=== PATIENT | male | born 1955 | race Caucasian/White ===

== ENCOUNTER → 2016-09-04 | Day surgery (SDC) | payer BC ==
[~2016-09-04] MED LIST: BACTOIN; BUPIVACAINE/EPINEPHRINE 0.25% 50 ML VIAL ONE; KETOROLAC TROMETHAMINE 30 MG/ML (IVP) VIAL IV PUSH ONE; LACTATED RINGER'S 1000 ML INJ 1,000 ML ONE; MIDAZOLAM HCL 2 MG/2 ML VIAL ONE; NEOMYCIN/POLYMYXIN/BACITRACIN OINT 15 GM TUBE ONE; ONDANSETRON HCL 4 MG/2 ML VIAL IV PUSH ONE; PROPOFOL 200 MG/20 ML AMP IV ONE; ceFAZolin 2 GM PREMIX 50 ML ONE
--- NOTE | 2016-09-04 15:35 | TN ---
cc: MAHESH CAMERON M.D. DATE OF SURGERY: 09/04/2016 PREOPERATIVE DIAGNOSIS 1. Symptomatic left inguinal hernia. 2. Small umbilical hernia. POSTOPERATIVE DIAGNOSIS 1. Indirect left inguinal hernia. 2. Small umbilical hernia. PROCEDURE PERFORMED 1. Laparoscopic left inguinal hernia repair with mesh. 2. Primary repair of umbilical hernia. SURGEON Mahesh Cameron TIME CLOCK MECHANIC RICARDO Youngblood ANESTHESIA General LMA. COMPLICATIONS None. INDICATION FOR PROCEDURE Mr. Schwartz is a pleasant 60-year-old gentleman who had a symptomatic left groin bulge. His history is significant for having had a right inguinal hernia as an . He was seen and evaluated. He was found to have a moderate left inguinal hernia and a small umbilical hernia. The risks and benefits of repair of his hernias was discussed with him and he was agreeable to proceed. Laparoscopic and open techniques were reviewed and the patient elected laparoscopic. DETAILS OF PROCEDURE The patient was identified, brought to the operating room and placed supine on the operating table. After adequate general anesthesia was achieved with LMA, the anterior abdomen and groin was prepped and draped in standard surgical fashion. The infraumbilical space was anesthetized with 0.25% Marcaine. An infraumbilical incision was made. Dissection was carried down to subcutaneous tissue to the anterior rectus fascia. The anterior rectus fascia was then incised vertically off the midline. The rectus muscle was retracted laterally and the preperitoneal space was entered with blunt finger dissection. A blunt dissecting balloon was inserted and the preperitoneal space insufflated with 30 pumps of air under direct vision. Next, the dissecting balloon was removed and balloon trocar inserted. The preperitoneal space was insufflated to 11 mmHg using CO2 gas. Next, two 5 mm trocars were placed in the lower midline under direct vision. Attention was directed to the midline where pubic tubercle and Ayan's ligament were identified. Dissection proceeded out laterally identifying the cord structures exiting the internal ring. Traveling with the cord structures was a fairly large peritoneal sac. The peritoneal sac was carefully dissected out of the inguinal canal using a [id number] technique. It was then stripped off of the cord structures back to the level of the preperitoneal space. There was no evidence of a direct inguinal hernia. Once the peritoneum had been stripped off the cord structures, a posterior window was made behind the cord structures. A piece of polypropylene mesh was inserted with a slit cut for the cord structures. The mesh was placed through the posterior window and then the slit re-approximated, tightening the internal ring with the ProTack device. The mesh was then secured medially at Ayan's ligament, superiorly along the posterior abdominal wall fascia. An onlay mesh was then placed over the slit and it was secured medially and laterally. With this the indirect and direct spaces were well-covered by mesh with generous overlap. 0.25% Marcaine was injected in the operative field. The inferior border of the mesh was then held down and the preperitoneal space was desufflated and the peritoneum was seen to roll up over the mesh, again with excellent coverage of the indirect and direct spaces. All trocars were removed under direct vision. The anterior rectus fascia was repaired with 0 Vicryl in a [id number] fashion. Attention was now directed to the umbilical hernia. The umbilical stalk was dissected circumferentially. The umbilical stalk was then transected and a small fascial defect was noted. The defect measured about a centimeter in diameter. It was therefore closed primarily using a 2-0 Prolene suture interrupted x2. With this the defect was completely closed. The umbilical stalk was then sutured down to the abdominal wall using a 3-0 Vicryl suture. Subcutaneous tissue was closed with 3-0 Vicryl and skin was closed with 4-0 Vicryl. The patient tolerated the procedure well, was awakened and brought to Recovery in stable condition. Please note the CAR REPOSSESSOR evaluation assistant was medically necessary due to her specialized surgical skills and knowledge of my surgical technique. MD JOEY Angulo/HUSAM /3:19 PM /3:25 PM KAYLEIGH
== END | disposition home or self-care (01) ==
LOC: ESDC 12:07
PROVIDERS: ATTEND Surgery Trauma Surgery
DX: K40.90 Unilateral inguinal hernia, without obstruction or gangrene, not specified as recurrent (principal); K42.9 Umbilical hernia without obstruction or gangrene
CPT/HCPCS: 00750; 00840; 49585; 49650; C1727; C1781; J0690; J1885; J2250; J2405; J3010; J7120

== ENCOUNTER 2017-11-14 12:44 | Emergency (ER) | payer BC ==
[~2017-11-14] VITALS: Ht 177.8 cm; Wt 85.0 kg
[~2017-11-14 12:44] MED LIST changes: -BUPIVACAINE/EPINEPHRINE 0.25% 50 ML VIAL ONE; -KETOROLAC TROMETHAMINE 30 MG/ML (IVP) VIAL IV PUSH ONE; -LACTATED RINGER'S 1000 ML INJ 1,000 ML ONE; -MIDAZOLAM HCL 2 MG/2 ML VIAL ONE; -NEOMYCIN/POLYMYXIN/BACITRACIN OINT 15 GM TUBE ONE; -ONDANSETRON HCL 4 MG/2 ML VIAL IV PUSH ONE; -PROPOFOL 200 MG/20 ML AMP IV ONE; -ceFAZolin 2 GM PREMIX 50 ML ONE
[2017-11-14 12:50] VITALS: BP 157/69; PULSE 93; RESP 20; TEMP 97.8; O2SAT 100
[2017-11-14] MEDS ORDERED: SODIUM CHLOR 0.9% 1000 ML INJ 1,000 ML IV SCH (13:24)
--- NOTE | 2017-11-14 13:29 | PD ---
HPI Chief Complaint: GI Complaint Time Seen by Provider: 13:18 Travel History International Travel<30 days: No Contact w/Intl Traveler<30days: No Traveled to known affect area: No History of Present Illness HPI Patient comes to the emergency department complaining of sharp stabbing abdominal pain that he woke with this morning. Describes them as feeling like a toothache. Patient reports he had surgery 5 days ago for right inguinal hernia was on pain medicine for 2 days and was fine the past couple of days until he woke this morning. Patient reports he had a normal bowel movement yesterday but has had a small loose stool today that was nonbloody. Patient reports he has been having nausea and belching. Reports the belching seems to help. Denies any vomiting. Pain radiates superiorly into his chest and is worse to palpation. PFSH Past Medical History Inguinal Hernia: Yes Social History Alcohol Use: No Tobacco Use: Yes Allergies-Medications (Allergen,Severity, Reaction): Coded Allergies: No Known Allergies (Verified Allergy, Mild, 01/20/16) Reported Meds & Prescriptions Reported Meds & Active Scripts Active Zofran Odt (Ondansetron Odt) 4 Mg Tab 4 Mg SL Q6HR PRN Bactroban Nasal Ointment (Mupirocin Nasal Ointment) Oin 1 Applic NA Q12HR 7 Days Review of Systems Except as stated in HPI: all other systems reviewed are Neg Physical Exam Narrative GENERAL: Well-developed, well nourished, in no acute distress, and non-ill appearing. SKIN: Focused skin assessment warm and dry. HEAD: Atraumatic. Normocephalic. EYES: Pupils equal and round. EOMI. No scleral icterus. No injection or drainage. ENT: No nasal bleeding or discharge. Mucous membranes pink and moist. NECK: Trachea midline. Supple. No nuclear rigidity. CARDIOVASCULAR: Regular rate and rhythm. No murmur appreciated. RESPIRATORY: No accessory muscle use. No respiratory distress. Clear to auscultation. Breath sounds equal bilaterally. GASTROINTESTINAL: Abdomen soft, nondistended, and no guarding. Hepatic and splenic margins not palpable. Normal bowel sounds x4. No pulsatile mass. Patient reports tenderness around the umbilicus. MUSCULOSKELETAL: No obvious deformities. No clubbing. No cyanosis. No edema. Full range of motion. NEUROLOGICAL: Awake and alert. No obvious cranial nerve deficits. Motor grossly within normal limits. Normal speech. PSYCHIATRIC: Appropriate mood and affect; insight and judgment normal. Data Data Last Documented VS Vital Signs Date Time Temp Pulse Resp B/P (MAP) Pulse Ox O2 Delivery O2 Flow Rate FiO2 11/14/17 18:49 62 21 143/73 (96) 98 11/14/17 16:25 98.2 Room Air Orders Orders Complete Blood Count With Diff (11/14/17 13:) Comprehensive Metabolic Panel (11/14/17 13:01) Urinalysis - C+S If Indicated (11/14/17 13:01) Iv Access Insert/Monitor (11/14/17 13:01) Oxygen Administration (11/14/17 13:) Oximetry (11/14/17 13:01) Lipase (11/14/17 13:01) Lipase (11/14/17 13:24) Prothrombin Time / Inr (Pt) (11/14/17 13:24) Act Partial Throm Time (Ptt) (11/14/17 13:24) Abdomen, Flat & Upright (11/14/17 ) Ecg Monitoring (11/14/17 13:24) Sodium Chlor 0.9% 1000 Ml Inj (Ns 1000 M (11/14/17 13:24) Sodium Chloride 0.9% Flush (Ns Flush) (11/14/17 13:30) Electrocardiogram (11/14/17 13:24) Chest, Single Ap (11/14/17 13:24) Ondansetron Odt (Zofran Odt) (11/14/17 13:30) Morphine Inj (Morphine Inj) (11/14/17 13:30) Promethazine Inj (Phenergan Inj) (11/14/17 13:45) Morphine Inj (Morphine Inj) (11/14/17 13:45) Influenzae A/B Antigen (11/14/17 14:12) Metoclopramide Inj (Reglan Inj) (11/14/17 14:30) Ct Abd/Pel W Iv Contrast(Rout) (11/14/17 15:28) Oral Contrast - Adult (11/14/17 15:31) Diatrizoate Liq ( Gastroview Liq) (11/14/17 15:49) Iohexol 350 Inj (Omnipaque 350 Inj) (11/14/17 17:41) Ed Discharge Order (11/14/17 18:07) Promethazine Inj (Phenergan Inj) (11/14/17 18:15) Labs Laboratory Tests Test 11/14/17 14:26 11/14/17 14:30 White Blood Count 12.5 TH/MM3 Red Blood Count 5.63 MIL/MM3 Hemoglobin 16.0 GM/DL Hematocrit 47.0 % Mean Corpuscular Volume 83.5 FL Mean Corpuscular Hemoglobin 28.5 PG Mean Corpuscular Hemoglobin Concent 34.1 % Red Cell Distribution Width 14.2 % Platelet Count 289 TH/MM3 Mean Platelet Volume 7.7 FL Neutrophils (%) (Auto) 80.9 % Lymphocytes (%) (Auto) 13.5 % Monocytes (%) (Auto) 4.9 % Eosinophils (%) (Auto) 0.4 % Basophils (%) (Auto) 0.3 % Neutrophils # (Auto) 10.1 TH/MM3 Lymphocytes # (Auto) 1.7 TH/MM3 Monocytes # (Auto) 0.6 TH/MM3 Eosinophils # (Auto) 0.1 TH/MM3 Basophils # (Auto) 0.0 TH/MM3 CBC Comment DIFF FINAL Differential Comment Prothrombin Time 10.2 SEC Prothromb Time International Ratio 1.0 RATIO Activated Partial Thromboplast Time 23.7 SEC Blood Urea Nitrogen 12 MG/DL Creatinine 1.02 MG/DL Random Glucose 112 MG/DL Total Protein 7.3 GM/DL Albumin 4.0 GM/DL Calcium Level 9.4 MG/DL Alkaline Phosphatase 64 U/L Aspartate Amino Transf (AST/SGOT) 17 U/L Alanine Aminotransferase (ALT/SGPT) 27 U/L Total Bilirubin 0.8 MG/DL Sodium Level 139 MEQ/L Potassium Level 4.0 MEQ/L Chloride Level 104 MEQ/L Carbon Dioxide Level 24.1 MEQ/L Anion Gap 11 MEQ/L Estimat Glomerular Filtration Rate 74 ML/MIN Lipase 51 U/L Urine Color YELLOW Urine Turbidity CLEAR Urine pH 8.5 Urine Specific Jackman 1.020 Urine Protein TRACE mg/dL Urine Glucose (UA) NEG mg/dL Urine Ketones 40 mg/dL Urine Occult Blood NEG Urine Nitrite NEG Urine Bilirubin NEG Urine Urobilinogen LESS THAN 2.0 MG/DL Urine Leukocyte Esterase NEG Urine RBC 1 /hpf Urine WBC LESS THAN 1 /hpf Microscopic Urinalysis Comment CULT NOT INDICATED MDM Medical Decision Making Medical Screen Exam Complete: Yes Emergency Medical Condition: Yes Interpretation(s) EKG reviewed by Dr. Nieves shows sinus rhythm ventricular rate of 70. No STEMI. Last Impressions Abdomen/Pelvis CT 11/14/17 1528 Signed Impressions: CONCLUSION: 1. No acute abnormality to explain the patient's pain. In particular, no compl icating factors from recent umbilical hernia surgery. 2. 11 mm splenic lesion and 6 mm pancreatic lesion. Both are too small to accu rately characterize with CT secondary to volume averaging artifact. Further nelly racterization is suggested utilizing an outpatient MRI with gadolinium. Chest X-Ray 11/14/17 1324 Signed Impressions: CONCLUSION: Negative examination. Abdomen X-Ray 11/14/17 0000 Signed Impressions: CONCLUSION: Nonspecific but nonobstructive bowel gas pattern. Differential Diagnosis Abscess, ileus, SBO, metabolic syndromes, gastritis, appendicitis, postop complication, nausea Narrative Course Dr. Nieves discussed patient with Dr. Shafer, general surgeon who performed hernia repair, who saw and evaluated the patient in the emergency department. There are normal active bowel sounds without any masses, distension, or significant tenderness. There was no evidence of an acute, surgical abdomen at this time. There was no clinical evidence to support cholecystitis/ cholelithiasis, pancreatitis, perforation of gastric ulcer, colitis, diverticulitis, peritonitis, obstruction, volvulus, early appendicitis, or hernial incarceration or strangulation at this time. There was no evidence to support vascular pathology such as AAA, mesenteric ischemia. There was also no clinical evidence by history, exam or risk factors to suggest atypical presentation of cardiac disease such as ACS, AMI or atypical angina. No evidence to suggest genitourinary etiology as well. During the course of the ED visit, the patient noted improvement. Clinical picture was discussed with the patient, as well as plan of care. The patient was instructed to follow up with their physician. Abdominal pain warnings were discussed with the patient. The patient is to return if worsens, pain worsens or changes, develop fever, inability to tolerate fluids with or without vomiting, increased vomiting, blood in vomit, unable to establish follow up or as needed. The patient agrees with plan. The patient was tolerating fluids at time of discharge. Patient in no obvious distress upon re-evaluation. All pertinent laboratory/ Radiology result(s) discussed with patient/family. Discussed patient with Dr. Nieves prior discharge, who saw and evaluated the patient and is in agreement with plan of care and disposition. Any questions/concerns in reference to patient diagnosis/condition discussed and clarified prior to patient's discharge. Reinforced sheer importance of close follow up with patient's primary physician or primary care clinic. Instructed patient to return to ED immediately, if symptoms return/worsen. Patient showed understanding of above instructions. Further instructions and recommendations were detailed in discharge paperwork. Patient ambulated without difficulty out of ED at discharge. Diagnosis Primary Impression: Abdominal pain Qualified Codes: R10.9 - Unspecified abdominal pain Additional Impressions: Nausea alone Lesion of spleen Lesion of pancreas Patient Instructions: Abdominal Pain (ED), Acute Nausea and Vomiting (ED), General Instructions Additional Instructions: Follow-up with your primary care physician next week to get an outpatient MRI for incidental findings noted on CT today. Take all medication as prescribed. Return to the emergency department if symptoms get worse. Med/Other Pt SpecificInfo: Prescription(s) given Scripts Ondansetron Odt (Zofran Odt) 4 Mg Tab 4 MG SL Q6HR Y for Nausea/Vomiting, #12 TAB 0 Refills Prov: Rajinder Nieves MD 11/14/17 Disposition: 01 DISCHARGE HOME Condition: Stable Sushil Li Nov 14, 2017 13:29
[2017-11-14] MEDS ORDERED: SODIUM CHLORIDE 0.9% FLUSH 10 ML FLUSH IV FLUSH PRN (13:30)
[2017-11-14] MEDS ORDERED: MORPHINE SULFATE 2 MG/ML SYRINGE IV PUSH ONE (13:30)
[2017-11-14] MEDS ORDERED: ONDANSETRON ODT 4 MG TAB PO ONE (13:30)
[2017-11-14] MEDS ORDERED: MORPHINE SULFATE 4 MG/ML INJ IV PUSH ONE (13:45)
[2017-11-14] MEDS ORDERED: PROMETHAZINE INJ 25 MG/ML VIAL IM ONE ×2 (13:45→18:15)
[2017-11-14] MEDS ORDERED: METOCLOPRAMIDE HCL 10 MG/2 ML VIAL IV PUSH ONE (14:30)
--- NOTE | 2017-11-14 14:39 | RADRPT ---
EXAM DATE: 11/14/2017 2:12 PM EDT AGE/SEX: 62 years / Male INDICATIONS: Mid to lower chest pain since Friday. CLINICAL DATA: This is the patient's initial encounter. Patient reports that signs and symptoms have been present for 4 - 6 days and indicates a pain score of 9/10. MEDICAL/SURGICAL HISTORY: None. None. COMPARISON: No prior exams available for comparison. FINDINGS: A single AP view of the chest demonstrates the lungs to be symmetrically aerated without evidence of mass, infiltrate or effusion. The cardiomediastinal contours are unremarkable. Osseous structures a re intact. CONCLUSION: Negative examination. Electronically signed by: Bernardo Mercer MD 11/14/2017 2:22 PM EDT
--- NOTE | 2017-11-14 14:39 | RADRPT ---
EXAM DATE: 11/14/2017 2:13 PM EDT AGE/SEX: 62 years / Male INDICATIONS: Pain in middle, upper abdomen since Friday. CLINICAL DATA: This is the patient's initial encounter. Patient reports that signs and symptoms have been present for 4 - 6 days and indicates a pain score of 9/10. MEDICAL/SURGICAL HISTORY: None. . Hernia. COMPARISON: No prior exams available for comparison. FINDINGS: Supine and upright views of the abdomen were performed. The abdominal bowel gas pattern is nonspecifi c. Gas-filled loops of nondilated large and small bowel observed. No air-fluid levels are seen. No ab normal masses, calcifications, or organomegaly is seen. The visualized lower lungs are clear. No evid ence of free intraperitoneal gas. The osseous structures are unremarkable. Anchoring devices from giovani or low ventral hernia repair CONCLUSION: Nonspecific but nonobstructive bowel gas pattern. Electronically signed by: Bernardo Mercer MD 11/14/2017 2:25 PM EDT
[2017-11-14 15:20] LABS: BILIRUBIN, URINE NEG (NEG); BLOOD, URINE NEG (NEG); GLUCOSE,URINE NEG (NEG); KETONE, URINE 40 mg/dL (NEG); NITRITE,URINE NEG (NEG); PH, URINE 8.5 (5.0-8.5); URINE COLOR YELLOW (YELLW/STRAW); URINE LEUKOCYTE ESTERASE NEG (NEG)
[2017-11-14 15:34] LABS: AUTOMATED NEUTROPHIL # 10.1 TH/MM3 (1.8-7.7); BASOPHIL % 0.3 % (0.0-2.0); EOSINOPHIL # 0.1 TH/MM3 (0-0.4); EOSINOPHIL % 0.4 % (0.0-4.0); LYMPH % 13.5 % (9.0-44.0); LYMPHOCYTE # 1.7 TH/MM3 (1.0-4.8); MEAN CELL VOLUME 83.5 FL (80.0-100.0); MEAN CORPUSCULAR HEMOGLOBIN 28.5 PG (27.0-34.0); MEAN CORPUSCULAR HGB CONC 34.1 % (32.0-36.0); MEAN PLATELET VOLUME 7.7 FL (7.0-11.0); MONO % 4.9 % (0.0-8.0); MONOCYTE # 0.6 TH/MM3 (0-0.9); NEUT % 80.9 % (16.0-70.0); PLATELET COUNT 289 TH/MM3 (150-450); RED BLOOD COUNT 5.63 MIL/MM3 (4.50-5.90); RED CELL DISTRIBUTION WIDTH 14.2 % (11.6-17.2); WHITE BLOOD COUNT 12.5 TH/MM3 (4.0-11.0)
[2017-11-14 15:44] LABS: PROTHROMBIN TIME - PATIENT 10.2 SEC (9.8-11.6)
[2017-11-14] MEDS ORDERED: DIATRIZOATE MEGLUM/DIATRIZOATE SOD 9 ML CUP ONE (15:49)
[2017-11-14 15:59] LABS: AST (GOT) 17 U/L (15-37); BICARBONATE 24.1 MEQ/L (21.0-32.0); BLOOD UREA NITROGEN 12 MG/DL (7-18); CALCIUM 9.4 MG/DL (8.5-10.1); CHLORIDE 104 MEQ/L (98-107); CREATININE 1.02 MG/DL (0.60-1.30); GLOMERULAR FILTRATION RATE 74 ML/MIN (>89); GLUCOSE,RANDOM 112 MG/DL (74-106); SODIUM (NA) 139 MEQ/L (136-145)
[2017-11-14 16:02] LABS: ALKALINE PHOSPHATASE 64 U/L (45-117); ALT (GPT) 27 U/L (12-78); TOTAL BILIRUBIN ADULT 0.8 MG/DL (0.2-1.0); TOTAL PROTEIN 7.3 GM/DL (6.4-8.2)
[2017-11-14 16:25] VITALS: BP 142/72; PULSE 67; RESP 17; TEMP 98.2; O2SAT 97
[2017-11-14] MEDS ORDERED: IOHEXOL 350 MG/ML 10 ML VIAL (for RAD DIAG) IVCONTRAST ONE (17:41)
--- NOTE | 2017-11-14 17:51 | RADRPT ---
EXAM DATE: 11/14/2017 5:43 PM EDT AGE/SEX: 62 years / Male INDICATIONS: Abdominal pain and chills post hernia surgery. CLINICAL DATA: This is the patient's initial encounter. Patient reports that signs and symptoms have been present for 1 day and indicates a pain score of 5/10. MEDICAL/SURGICAL HISTORY: None. Umbilical hernia repair. ORAL CONTRAST: Partial prescribed oral contrast ingested. RADIATION DOSE: 11.17 CTDI (mGy) COMPARISON: No prior exams available for comparison. TECHNIQUE: Multiple contiguous axial images were obtained through the abdomen and pelvis following b olus infusion of 92 ml Omnipaque 350 (iohexol) nonionic water-soluble contrast as a single exam dos e. Partial prescribed oral contrast ingested. Using automated exposure control and adjustment of the mA and/or kV according to patient size, the radiation dose was kept as low as reasonably achievable to obtain optimal diagnostic quality images. FINDINGS: Lower Lungs: The visualized lower lungs are clear. Liver: The liver has a homogeneous density without space-occupying lesion. There is no dilation of th e biliary tree. Spleen: A 1.1 cm rounded low-density focus is seen involving the spleen. The remaining spleen is unr emarkable. No enlargement.. Pancreas: There is a 6 mm low-attenuation rounded focus involving the pancreatic head anteriorly. Th e remaining pancreas is unremarkable. No ductal dilatation.. Kidneys: Normal in size and shape. A 1.8 cm exophytic cortical cyst seen involving the anterior uppe r pole the right kidney. Hounsfield units are 9. A sub-1 cm cortical cyst is seen involving the anter ior midpole the left kidney. No evidence of mass or hydronephrosis. Adrenal Glands: Unremarkable. Aorta: The aorta and proximal iliac vessels are grossly unremarkable without aneurysmal dilation. Bowel/Mesentery: The bowel loops are grossly unremarkable. The cecum and sigmoid colon have a normal configuration. Abdominal Wall: Anchoring devices from a low ventral hernia repair. Mild stranding of the subcutaneo us fat within the periumbilical region as well. No fluid collections. No recurrent hernia. No hematom a. No free air or free fluid.. Retroperitoneum: No evidence of adenopathy in the retrocrural, para-aortic, or deep pelvic regions. Bladder: Contours are smooth. Reproductive Organs: No abnormal masses or calcifications seen. Inguinal: The inguinal region is unremarkable without evidence of adenopathy. Bony Structures: Unremarkable. CONCLUSION: 1. No acute abnormality to explain the patient's pain. In particular, no complicating factors from r ecent umbilical hernia surgery. 2. 11 mm splenic lesion and 6 mm pancreatic lesion. Both are too small to accurately characterize wi th CT secondary to volume averaging artifact. Further characterization is suggested utilizing an outp atient MRI with gadolinium. Electronically signed by: Bernardo Mercer MD 11/14/2017 5:49 PM EDT
[2017-11-14] MEDS ORDERED: ZOFR4TAB3 SL (18:06)
[2017-11-14 18:49] VITALS: BP 143/73
--- NOTE | 2017-11-15 15:10 | EKG ---
Date Performed: 11/14/2017 Time Performed: 13:34:28 PTAGE: 62 years EKG: Sinus rhythm MARKED LEFT AXIS DEVIATION SEPTAL MYOCARDIAL INFARCTION ABNORMAL ECG PREVIOUS TRACING : 04/18/2006 09.30 Since the previous tracing, no significant change noted DOCTOR: Herbie Stovall Interpretating Date/Time 11/15/2017 15:09:10
== END 2017-11-14 18:50 | disposition home or self-care (01) ==
LOC: NEPC 12:44
DX: R10.9 Unspecified abdominal pain (principal); R11.0 Nausea; D73.89 Other diseases of spleen; K86.89 Other specified diseases of pancreas; R94.31 Abnormal electrocardiogram [ECG] [EKG]; Z72.0 Tobacco use
CPT/HCPCS: 71045; 74019; 74177; 80053; 81001; 83690; 85025; 85610; 85730; 87804; 93005; 96361; 96372; 96374; 96375; 99285; J2270; J2550; J2765; J7030; Q9963; Q9967